=== PATIENT | male | born 1965 | race Caucasian/White ===

== ENCOUNTER 2020-04-11 15:12 | Outpatient (REF) | payer MEDICAID, SELFPAY | END 2020-04-11 15:13 | disposition home or self-care (01) | LOC: HO.LAB 15:12 | PROVIDERS: Visit Provider Internal Medicine | DX: Z20.828 Contact with and (suspected) exposure to other viral communicable diseases (principal) | CPT/HCPCS: 36415; 87635 ==

== ENCOUNTER 2021-03-27 17:01 | Emergency (ER) | payer MEDICAID, SELFPAY ==
--- NOTE | 2021-03-27 | ECG_ITS ---
Test Reason : 4862 Blood Pressure : / mmHG Vent. Rate : 074 BPM Atrial Rate : 074 BPM P-R Int : 144 ms QRS Dur : 082 ms QT Int : 392 ms P-R-T Axes : 019 -17 038 degrees QTc Int : 435 ms Normal sinus rhythm Minimal voltage criteria for LVH, may be normal variant Borderline ECG No previous ECGs available Referred By: Frances Sharif Electronically Signed By:STORMY MATHEW
--- NOTE | ~2021-03-27 | XR_ITS ---
EXAMINATION: XR CHEST CLINICAL INFORMATION: Chest pain COMPARISON: None TECHNIQUE: Frontal view of the chest was obtained. FINDINGS: No significant abnormality is noted involving the heart, lungs, mediastinum, bony thorax or soft tissues. XR/XR chest 1V IMPRESSION: Unremarkable examination.
[2021-03-27 17:20] VITALS: BP 160/80; PULSE 75; RESP 18; TEMP 36.6; O2SAT 98; BMI 30.4
[2021-03-27 20:05] LABS: MANUAL DIFF FLAG NO
[2021-03-27 20:09] LABS: Basophils Absolute Auto 0.1 X10*3/uL (0.0-0.2); Basophils Percent Auto 0.6 % (0-2); Eosinophils Absolute Auto 0.2 X10*3/uL (0.0-0.4); Eosinophils Percent Auto 2.4 % (0-4); Hematocrit 42.2 % (42-52); Hemoglobin 14.7 g/dl (14.0-18.0); Imm Gran Abs Auto 0.02 X10*3/uL (0.00-0.03); Imm Gran Pct Auto 0.2 % (0.0-0.4); Lymphocytes Absolute Auto 2.8 X10*3/uL (1.2-4.9); Lymphocytes Percent Auto 31.9 % (20-40); Mean Corpuscular HGB Conc 34.8 g/dl (31.0-36.0); Mean Corpuscular Hemoglobin 32.1 pg (27.0-33.0); Mean Corpuscular Volume 92.1 fL (80-98); Monocytes Absolute Auto 0.8 X10*3/uL (0.1-1.2); Monocytes Percent Auto 9.3 % (2-11); Neutrophils Absolute Auto 4.9 X10*3/uL (2.0-8.3); Neutrophils Percent Auto 55.6 % (45-73); Platelet Count 184 X10*3/uL (160-400); Red Blood Count 4.58 X10*6/uL (4.60-5.80); Red Cell Distribution Width 12.7 % (11.0-16.0); White Blood Count 8.8 X10*3/uL (4.8-10.8)
[2021-03-27 20:13] VITALS: BP 107/68; PULSE 65; RESP 16; TEMP 36.8; O2SAT 99
[2021-03-27 20:24] LABS: Anion Gap 13 (12-20); Blood Urea Nitrogen 20 mg/dL (9-16); Calcium 9.4 mg/dL (8.4-10.2); Carbon Dioxide 28 mmol/L (22-29); Chloride 101 mmol/L (96-108); Creatinine Clr Calc Pharmacy 61.7; Estimated Glomerular Filt Rate 50; Glucose Random 119 mg/dL (60-115); Sodium 138 mmol/L (135-145)
[2021-03-27 20:31] LABS: Troponin-I High Sensitivity 3.7 ng/L (<3.5-35.0)
[2021-03-27 22:00] VITALS: BP 103/69; PULSE 65; RESP 16; TEMP 36.6; O2SAT 99
--- NOTE | 2021-03-27 22:22 | ED_ITS ---
HPI - Chest Pain General Chief Complaint: Chest Pain Stated Complaint: cp Time Seen by Provider: 03/27/21 22:19 Source: patient Mode of arrival: ambulatory Limitations: no limitations History of Present Illness HPI narrative: Patient is a 56-year-old male with a past medical history of hypertension who presents with 3 days of left-sided chest pain that radiates into his abdomen. He describes the pain as 8/10. He states it is worse when he takes a deep breath. He denies any fevers, nausea, vomiting, cough, congestion, headaches or dizziness. He states he has had no changes in his bladder or bowels. Related Data Allergies Allergy/AdvReac Type Severity Reaction Status Date / Time No Known Allergies Allergy Verified 03/27/21 17:46 Review of Systems Review of Systems: Yes all other systems are reviewed and are negative [facility] Past Medical History Medical History Hypertension Social History Social History Advance Directives: No Advance Directives Information Provided: No Physical Exam 2 Vital Signs: Vital Signs: Last Vital Signs Temp 97.9 F 03/27/21 22:00 Pulse 65 03/27/21 22:00 Resp 16 03/27/21 22:00 BP 103/69 03/27/21 22:00 Pulse Ox 99 03/27/21 22:00 Body Mass Index 30.4 Const: General: cooperative, healthy appearing, comfortable, no acute distress and well developed Orientation/consciousness: patient oriented x3 Limitations: no limitations HENMT: Head: Yes normal to inspection Eyes: General: appearance normal, both eyes and all related structures Neck: Neck: Yes normal visual inspection and Yes full ROM Chest: Chest palpation & inspection: tenderness (Left-sided ribs) Resp: Effort & Inspection: normal respiratory effort and able to speak in complete sentences Auscultation: clear to auscultation bilaterally Cardio: Rate: regular rate Rhythm: regular rhythm Heart sounds: normal S1 and S2 GI: Inspection: Yes normal to inspection Palpation (GI): Soft to palpation and nontender Skin: General skin exam: no rashes or lesions noted Neuro: General: patient oriented x3 Extrem: General: Yes normal to inspection Course Course Course Narrative: 56-year-old male with past medical history of hypertension complaining of 3 days of pleuritic chest pain. Vital signs are stable, physical exam revealed reproducible chest pain. EKG normal sinus rhythm 74 beats per minute, chest x-ray negative. Labs all within normal limits, troponin negative. MDM - Chest Pain Lab Data Result diagrams: 03/27/21 19:56 03/27/21 19:56 Labs: Lab Results 03/27/21 03/27/21 03/27/21 Range/Units 19:56 19:56 19:56 WBC 8.8 (4.8-10.8) X10*3/uL RBC 4.58 L (4.60-5.80) X10*6/uL Hgb 14.7 (14.0-18.0) g/dl Hct 42.2 (42-52) % MCV 92.1 (80-98) fL MCH 32.1 (27.0-33.0) pg MCHC 34.8 (31.0-36.0) g/dl RDW 12.7 (11.0-16.0) % Plt Count 184 (160-400) X10*3/uL MPV 11.0 (9.4-12.4) fL Immature Gran % (Auto) 0.2 (0.0-0.4) % Neut % (Auto) 55.6 (45-73) % Lymph % (Auto) 31.9 (20-40) % Bourbon % (Auto) 9.3 (2-11) % Eos % (Auto) 2.4 (0-4) % Baso % (Auto) 0.6 (0-2) % Lymph # (Auto) 2.8 (1.2-4.9) X10*3/uL Bourbon # (Auto) 0.8 (0.1-1.2) X10*3/uL Eos # (Auto) 0.2 (0.0-0.4) X10*3/uL Baso # (Auto) 0.1 (0.0-0.2) X10*3/uL Abs Immat Gran (auto) 0.02 (0.00-0.03) X10*3/uL Absolute Neuts (auto) 4.9 (2.0-8.3) X10*3/uL Absolute Nucleated RBC 0.000 (0.0-0.012) X10*3/uL Nucleated RBC % (auto) 0.0 (0.0-0.2) /100WBC Sodium 138 (135-145) mmol/L Potassium 4.0 (3.3-5.1) mmol/L Chloride 101 (96-108) mmol/L Carbon Dioxide 28 (22-29) mmol/L Anion Gap 13 (12-20) BUN 20 H (9-16) mg/dL Creatinine 1.46 H (0.5-1.4) mg/dL Estim Creat Clear Calc 61.7 Estimated GFR 50 Random Glucose 119 H (60-115) mg/dL Calcium 9.4 (8.4-10.2) mg/dL Troponin I High Sens 3.7 (<3.5-35.0) ng/L Discharge Plan Discharge Clinical Impression: Costalchondritis Patient Disposition: Home, Self-Care Instructions: Costochondritis (ED) Additional Instructions: If your symptoms get worse, please return to the emergency department or follow- up with your primary care doctor. Otherwise please take Motrin, Aleve or Advil as directed for 3 or 4 days, your pain should improve slowly over the next 1-2 weeks. Interventions: ED Discharge Assessment Last Done: 03/27/21 23:08 Discharge Date/Time: 03/27/21 23:09 Print Language: Kinyarwanda
== END 2021-03-27 23:09 | disposition home or self-care (01) ==
PROVIDERS: Emergency Provider Internal Medicine; PCP Internal Medicine
DX: M94.0 Chondrocostal junction syndrome [Tietze] (principal); R07.9 Chest pain, unspecified
CPT/HCPCS: 36415; 71045; 80048; 84484; 85025; 93005; 96374; 99284

== ENCOUNTER 2021-07-09 09:22 | Outpatient (REF) | payer MEDICAID, SELFPAY ==
[2021-07-09 10:43] LABS: COVID-19 Test Positive (Negative)
== END 2021-07-09 09:23 | disposition home or self-care (01) ==
LOC: HO.LAB 09:22
PROVIDERS: Visit Provider Internal Medicine
DX: Z20.822 Contact with and (suspected) exposure to COVID-19 (principal)
CPT/HCPCS: 36415; 87635; C9803

== ENCOUNTER 2022-02-26 13:59 | Outpatient (REF) | payer MEDICAID, SELFPAY ==
--- NOTE | ~2022-02-26 | XR_ITS ---
EXAMINATION: XR SHOULDER, RIGHT CLINICAL INFORMATION: Right shoulder pain. COMPARISON: None TECHNIQUE: Four views of the right shoulder. FINDINGS: The bony alignments are intact. The cortices are intact. Articular margins, joint space appear unremarkable. The soft tissues are unremarkable. XR/XR shoulder RT min 2V IMPRESSION: Unremarkable radiographic appearance of the right shoulder.
== END 2022-02-26 14:00 | disposition home or self-care (01) ==
LOC: HO.XRAY 13:59
PROVIDERS: Absent Provider Internal Medicine; PCP Internal Medicine; Visit Provider Internal Medicine
DX: M25.511 Pain in right shoulder (principal)
CPT/HCPCS: 73030

== ENCOUNTER 2022-07-21 08:38 | Outpatient (REF) | payer MEDICAID, SELFPAY ==
--- NOTE | 2022-07-21 | EMG_ITS ---
Please see scanned EMG / Nerve Conduction Report. MTDD
== END 2022-07-21 08:39 | disposition home or self-care (01) ==
LOC: HO.NEURO 08:38
PROVIDERS: PCP Internal Medicine; Visit Provider Internal Medicine
DX: M79.604 Pain in right leg (principal)
CPT/HCPCS: 95885; 95909

== ENCOUNTER 2022-09-09 17:00 | Outpatient (RCR) | payer MEDICAID, SELFPAY ==
[2022-07-16 13:57] VITALS: BP 122/77; PULSE 83; O2SAT 97
== END 2022-09-10 09:29 | disposition home or self-care (01) ==
LOC: HO.PT 17:00
PROVIDERS: PCP Internal Medicine; Visit Provider Internal Medicine
DX: M79.604 Pain in right leg (principal)
CPT/HCPCS: 97110; 97140; 97162

== ENCOUNTER 2023-04-15 10:35 | Outpatient (REF) | payer BC, SELFPAY | END 2023-04-15 10:36 | disposition home or self-care (01) | LOC: HO.LAB 10:35 | PROVIDERS: PCP Internal Medicine; Visit Provider Internal Medicine | DX: Z00.00 Encounter for general adult medical examination without abnormal findings (principal); Z12.5 Encounter for screening for malignant neoplasm of prostate; M75.52 Bursitis of left shoulder; N40.0 Benign prostatic hyperplasia without lower urinary tract symptoms; I10 Essential (primary) hypertension; E78.00 Pure hypercholesterolemia, unspecified | CPT/HCPCS: 36415; 80053; 80061; 84153; 85025 ==

== ENCOUNTER 2023-05-31 16:00 | Outpatient (RCR) | payer BC, SELFPAY ==
--- NOTE | 2023-04-30 16:23 | MHC.PT.EP ---
[facility] [place] [facility] [place] [facility] [place] [facility] [address] [phone] F: [phone] F: [phone] F: [phone] F: [phone] Physical Therapy Plan of Care Date of Evaluation: 04/28/23 Date of Surgery: n/a Diagnosis: Bursitis left shoulder Assessment: Pt is a pleasant 58yo M who presents to PT with L shoulder pain. Pt presents to PT with current impairments in pain, decreased L shoulder ROM, decreased strength, soft tissue restrictions, and impaired posture. He is limited functionally by lifting, carrying, overhead ADLs, and laying on his side. He is an excellent candidate for skilled PT in order to address current impairments to facilitate return to PLOF. He is recommended to be seen 2x/week for 4 weeks and will be reassessed at that time Frequency and Duration: The patient will be seen 2x/week for 4 weeks Short Term Goals: Pt will be I with HEP to promote self management of symptoms Pt will increase L shoulder flexion by at least 10 degrees Process Operator Goals: Pt will achieve full ROM and strength all planes of L shoulder to assist with functional tasks such as lifting and reaching Pt will perform overhead ADLs with minimal to no pain or compensation Treatment Plan: Modalities to reduce pain, spasms and effusion. Manual therapy to restore motion and function. Therapeutic exercise to improve strength and flexibility. Neuromuscular re-education for posture and balance. Therapeutic activities to return to functional activities of daily living. Electronically signed by: Meghan Urena, PT, DPT Please sign and return to therapist. Thank you for your referral.
--- NOTE | 2023-10-17 11:39 | MHC.PT.DC ---
[facility] [place] Office [place] Office [place] Office [address] Destini Lassiter [address] [phone] F: [phone] F: [phone] F: [phone] F: [phone] Physical Therapy Discharge Report Diagnosis: Bursitis left shoulder Date of Surgery: n/a Date of Evaluation: 04/28/23 Date of Discharge: 10/17/23 Treatments to Date: 8 Cancellations to Date: 1 No Shows to Date: 1 Discharge Status: Improved Function Independent with HEP Discharge Summary: Pt was seen for PT from 04/28/23-05/31/23. His last attended and scheduled PT session was 05/31/23 From last PT note by JF: Pt independent w/HEP -Significant improvement w/SPADI AROM N all mvts -strength 5/5 to same Electronically signed by: Meghan Urena, PT, DPT Please sign and return to therapist. Thank you for your referral.
== END 2023-10-17 11:38 | disposition home or self-care (01) ==
LOC: HO.PT 16:00
PROVIDERS: PCP Internal Medicine; Visit Provider Internal Medicine
DX: M75.52 Bursitis of left shoulder (principal)
CPT/HCPCS: 97110; 97140; 97161; 97530

== ENCOUNTER 2023-08-01 06:45 | Outpatient (REF) | payer BC, SELFPAY ==
[2023-08-01 07:31] LABS: Alanine Aminotransferase 49 U/L (0-40); Albumin Level 3.9 g/dL (3.5-5.0); Alkaline Phosphatase 53 U/L (39-117); Anion Gap 10 (12-20); Aspartate Amino Transferase 26 U/L (5-37); Bilirubin Total 0.6 mg/dL (0.0-1.0); Blood Urea Nitrogen 14 mg/dL (9-16); Carbon Dioxide 27 mmol/L (22-29); Chloride 108 mmol/L (96-108); Cholesterol 105 mg/dL (<200); Estimated Glomerular Filt Rate > 60; Glucose Random 114 mg/dL (60-115); HDL Cholesterol 27 mg/dL (>40); LDL Cholesterol Calculated 62 mg/dL (<100); Potassium 4.4 mmol/L (3.3-5.1); Sodium 141 mmol/L (135-145); Total Protein 7.6 g/dL (6.5-8.0); Triglycerides 82 mg/dL (<150)
== END 2023-08-01 06:46 | disposition home or self-care (01) ==
LOC: HO.LAB 06:45
PROVIDERS: PCP Internal Medicine; Visit Provider Internal Medicine
DX: E78.00 Pure hypercholesterolemia, unspecified (principal); R74.01 Elevation of levels of liver transaminase levels; I10 Essential (primary) hypertension
CPT/HCPCS: 36415; 80053; 80061

== ENCOUNTER 2024-04-11 05:56 | Outpatient (REF) | payer BC, SELFPAY ==
[2024-04-11 06:51] LABS: MANUAL DIFF FLAG NO
[2024-04-11 07:58] LABS: Basophils Percent Auto 0.6 % (0-2); Eosinophils Absolute Auto 0.6 X10*3/uL (0.0-0.4); Eosinophils Percent Auto 8.2 % (0-4); Hematocrit 41.2 % (42.0-52.0); Hemoglobin 14.2 g/dl (14.0-18.0); Imm Gran Abs Auto 0.02 X10*3/uL (0.00-0.03); Imm Gran Pct Auto 0.3 % (0.0-0.4); Lymphocytes Absolute Auto 2.4 X10*3/uL (1.2-4.9); Lymphocytes Percent Auto 33.5 % (20-40); Mean Corpuscular HGB Conc 34.5 g/dl (31.0-36.0); Mean Corpuscular Volume 92.8 fL (80.0-98.0); Monocytes Absolute Auto 0.8 X10*3/uL (0.1-1.2); Monocytes Percent Auto 10.9 % (2-11); Neutrophils Absolute Auto 3.3 x10*3/uL (2.0-8.3); Neutrophils Percent Auto 46.5 % (45-73); Platelet Count 167 X10*3/uL (160-400); Red Blood Count 4.44 X10*6/uL (4.60-5.80); Red Cell Distribution Width 12.8 % (11.0-16.0)
[2024-04-11 08:25] LABS: Alanine Aminotransferase 45 U/L (0-40); Albumin Level 4.2 g/dL (3.5-5.0); Alkaline Phosphatase 63 U/L (39-117); Anion Gap 12 (12-20); Aspartate Amino Transferase 26 U/L (5-37); Bilirubin Total 0.6 mg/dL (0.0-1.0); Blood Urea Nitrogen 14 mg/dL (9-16); Calcium 9.4 mg/dL (8.4-10.2); Carbon Dioxide 26 mmol/L (22-29); Chloride 107 mmol/L (96-108); Cholesterol 116 mg/dL (<200); Estimated Glomerular Filt Rate 59; Glucose Random 100 mg/dL (60-115); HDL Cholesterol 32 mg/dL (>40); LDL Cholesterol Calculated 62 mg/dL (<100); Potassium 3.5 mmol/L (3.3-5.1); Sodium 141 mmol/L (135-145); Total Protein 7.8 g/dL (6.5-8.0); Triglycerides 112 mg/dL (<150)
[2024-04-11 08:44] LABS: Prostate Specific Antigen Scr 0.37 ng/mL (<0.05-4.0)
== END 2024-04-11 05:57 | disposition home or self-care (01) ==
LOC: HO.LAB 05:56
PROVIDERS: PCP Internal Medicine; Visit Provider Internal Medicine
DX: E78.00 Pure hypercholesterolemia, unspecified (principal); I10 Essential (primary) hypertension; N40.0 Benign prostatic hyperplasia without lower urinary tract symptoms; R74.01 Elevation of levels of liver transaminase levels; Z68.33 Body mass index [BMI] 33.0-33.9, adult; Z12.5 Encounter for screening for malignant neoplasm of prostate
CPT/HCPCS: 36415; 80053; 80061; 84153; 85025

== ENCOUNTER 2024-10-22 06:33 | Outpatient (REF) | payer BC, SELFPAY ==
--- OUTSIDE RECORDS SUMMARY | 2024-10-22 06:36 | XMS_ITS | Clinical Summary ---
Author Organization [employer] Address [address] [facility] [address] [place] [address] Care Team Providers Care Slurry Blender Name Role Phone Merlin Nolasco MD Primary Care Prov ider Allergies No known active allergies Medications lisinopril-hydro CHLOROthiazide 20-25 MG tablet Take 1 tablet by mouth in the morning. 90 tablet 3 10/07/2022 Active Blood Pressure kit 1 kit in the morning. 1 kit 10/07/2022 Active naproxen (Naprosyn) 500 MG tablet TAKE 1 TABLET BY MOUTH TWICE A DAY WITH FOOD 60 tablet 3 12/09/2022 Active Active Problems Problem Noted Date Diagnosed Date Screening for colon cancer 10/07/2022 Assessment & Plan (10/07/2022 11:16 AM EDT): Done in 2017 it was reported as normal, no polyps removed but report says to repeat it in 5 years, will refer to GI Primary hypertension 06/25/2022 Assessment & Plan (10/07/2022 11:17 AM EDT): Controlled, will order new bp monitor, reinforced low sodium diet and exercise as tolerated, will follow up in 3 months Assessment & Plan (06/25/2022 12:48 PM EST): Controlled on lisinopril/hctz, low sodium diet and exercise reinforced, no changes will be made Prostate cancer screening 06/25/2022 Right leg pain 06/25/2022 Assessment & Plan (06/25/2022 12:50 PM EST): Patient complains for the past 3-4 months of a shotting pain on the back of his thigh, not related to exertion, no back pain, no leg weakness. Will refer to PT, has tried conservative treatment without improvement, and will order a EMG. Screening for malignant neoplasm of colon 2021 Assessment & Plan (06/25/2022 12:51 PM EST): Had colonoscopy on 2017, scheduled for 5 years, will place referal Social History Tobacco Use Types Packs/Day Years Used Date Smoking Tobacco: Never Assessed Depression Answer Date Recorded Patient Health Questionnaire-9 Score 4 10/07/2022 Housing Stability Answer Date Recorded What is your housing situation today? I have edwina jerome 05/16/[address] you li ve. Do you have problems with any of the following? None of the above 05/16/2023 Food Insecurity Answer Date Recorded Within the past 12 months, y ou worried that your food would run out before you got money to buy more: Never True 05/16/2023 Within the past 12 months,th e food you bought just didn't last and you didn't have enough money to get more: Never True 12/2022 Transportation Answer Date Recorded In the past 12 months, has l ack of transportation kept you from medical appts, meetings, work or from getting things needed for daily living? No 05/16/2023 Utilities Answer Date Recorded In the past 12 months, has t he electric, gas, oil or water company threatened to shut off services in your home? No 05/16/2023 Depression Answer Date Recorded Patient Health Questionnaire-2 Score 4 10/07/2022 Sex and Gender Information Value Date Recorded Sex Assigned at Male 05/10/2022 10:18 AM EDT Legal Sex Male 10:18 AM EDT Gender Identity Male 05/10/2022 10:18 AM EDT Sexual Orientation Straight 05/10/2022 10 :18 AM EDT Last Filed Vital Signs Vital Sign Reading Time Taken Comments Blood Pressure 125/87 11/12/2022 11:28 AM EDT Pulse 66 11/12/2022 11:28 AM EDT Temperature 36.4 ??C (97.6 ??F) 11/12/2022 11:28 AM E DT Respiratory Rate 16 11/12/2022 11:28 AM EDT Oxygen Saturation - - Inhaled Oxygen Concentration - - Weight 93 kg (205 lb) 11/12/2022 11:28 AM EDT Height 170.2 cm (5' 7 ) 11/12/2022 11:28 AM EDT Body Mass Index 32.11 11/12/2022 11:28 AM EDT Plan of Treatment Health Maintenance Due Date Last Done Comments CT Colonography 1965 Colonoscopy 1965 Colorectal Cancer Screening 1965 FIT DNA/Cologuard 1965 FIT 1965 FOBT 1965 HIV Screening 1965 Sigmoidoscopy 1965 Alcohol/Substance Use Screening 1977 Tobacco Screening 1977 Hepatitis C Screening 1983 Hepatitis B Vaccines (1 of 3 - 19+ 3-dose series) 01/21/1984 Pneumococcal Vaccine: 50+ Years (1 of 1 - PCV) 2015 DTaP/Tdap/Td Vaccines (2 - T d or Tdap) 11/23/2022 11/23/2012 Depression Screening 10/08/2023 10/07/2022, 10/07/2022 SDOH Screening 10/08/2023 10/07/2022 COVID-19 Vaccine (4 - 2023-2 5 season) 2024 08/19/2021, 11/29/2020, 11/01/2020 Influenza Vaccine (#1) 2024 2, 08/28/2019 Lipid Panel 06/25/2027 06/25/2022 RSV Patients and Patients Aged 60 years or older (1 - 1-dose 75+ series) 01/21/2040 Zoster Vaccines Completed 03/03/2020, 08/28/2019 HIB Vaccines Aged Out No longer eligi ble based on patient's age to complete this topic HPV Vaccines Aged Out No longer eligi ble based on patient's age to complete this topic Hepatitis A Vaccines Aged Out No long er eligible based on patient's age to complete this topic IPV Vaccines Aged Out No longer eligi ble based on patient's age to complete this topic Meningococcal Vaccine Aged Out No sakina sudheer eligible based on patient's age to complete this topic RSV under 20 months Aged Out No longe r eligible based on patient's age to complete this topic Rotavirus Vaccines Aged Out No longer eligible based on patient's age to complete this topic Procedures Procedure Name Priority Date/Time Associated Diagnosis Comments LIPID PANEL, STANDARD Routine 06/25/2022 10:51 AM EST Primary hypertension from Last 3 Months or Most Recently Relevant to Health Maintenance Results * (ABNORMAL) Lipid Panel, Standard (06/25/2022 10:51 AM EST) Cholesterol, Total 186 <200 mg/dL [facility] HDL Cholesterol 35(L) > OR = 40 mg/dL [facility] Triglycerides 183(H) <150 mg/dL [facility] LDL Cholesterol 121(H) mg/dL (calc) [facility] Comment: Reference range: <100 Desirable range <100 mg/dL for primary prevention; ?? <70 mg/dL for patients with CHD or diabetic patients with > or = 2 CHD risk factors. LDL-C is now calculated using the Baljit-Wu calculation, which is a validated novel method providing better accuracy than the Friedewald equation in the estimation of LDL-C. Baljit SS et al. RENA. 2013;310(19): 5902-6498 (http://education.Canara/faq/ATO039) Chol/HDLC Ratio 5.3(H) <5.0 (calc) [facility] Non-HDL Cholesterol 151(H) <130 mg/dL (calc) [facility] Comment: For patients with diabetes plus 1 major ASCVD risk factor, treating to a non-HDL-C goal of <100 mg/dL (LDL-C of <70 mg/dL) is considered a therapeutic option. Blood Venous blood specimen / Unknown 06/25/2022 10:51 AM EST 06/25/2022 10:52 AM EST Narrative [facility] - 06/26/2022 9:20 AM EST FASTING:NO FASTING: NO Merlin Paulson MD LAB BLOOD ORDERABL ES Final Result [facility] [address] [facility], 3[address], [place] [address] [facility] [address] [facility], ([address]) [place] [address] from Last 3 Months or Most Recently Relevant to Health Maintenance Insurance [facility] C3 HSN FULL Care Teams Slurry Blender Relationship Specialty Start Date End Date Merlin Nolasco MD [address] [place] [id number] PCP - General Internal Medicine 02/23/22
[2024-10-22 07:56] LABS: Alanine Aminotransferase 55 U/L (0-40); Alkaline Phosphatase 56 U/L (39-117); Anion Gap 9 (12-20); Aspartate Amino Transferase 33 U/L (5-37); Bilirubin Total 0.5 mg/dL (0.0-1.0); Blood Urea Nitrogen 17 mg/dL (9-16); Calcium 8.9 mg/dL (8.4-10.2); Carbon Dioxide 26 mmol/L (22-29); Chloride 111 mmol/L (96-108); Estimated Glomerular Filt Rate > 60; Glucose Random 89 mg/dL (60-115); Sodium 142 mmol/L (135-145); Total Protein 7.3 g/dL (6.5-8.0)
[2024-10-22 08:43] LABS: HBsAGNum1 0.33 S/CO (0.00-0.99); Hepatitis B Core Antibody Nonreactive (Nonreactive); Hepatitis B Surface Antigen Negative (Negative); ~Hepatitis B Surface Antibody NONREACTIVE (Nonreactive)
[2024-10-23 19:48] LABS: HCV Log PCR <1.18 NOT DETECTED Log IU/mL (NOT DETECTED); HepC Viral Load <15 NOT DETECTED IU/mL (NOT DETECTED)
== END 2024-10-22 06:34 | disposition home or self-care (01) ==
LOC: HO.LAB 06:33
PROVIDERS: PCP Internal Medicine; Visit Provider Internal Medicine
DX: Z00.00 Encounter for general adult medical examination without abnormal findings (principal); E78.00 Pure hypercholesterolemia, unspecified; I12.9 Hypertensive chronic kidney disease with stage 1 through stage 4 chronic kidney disease, or unspecified chronic kidney disease; R74.01 Elevation of levels of liver transaminase levels
CPT/HCPCS: 36415; 80053; 86704; 86706; 87340; 87522

== ENCOUNTER 2025-04-16 08:30 | Outpatient (REF) | payer BC, SELFPAY ==
--- OUTSIDE RECORDS SUMMARY | 2025-04-16 09:07 | XMS_ITS | Clinical Summary ---
Author Organization [employer] Address [address] [facility] 7[address] [place] [address] Care Team Providers Care Tobacco Sieve Operator Name Role Phone Merlin Nolasco MD Primary [...] 66 11/12/2022 11:28 AM EDT Temperature 36.4 C (97.6 F) 11/12/2022 11:28 AM EDT Respiratory Rate 16 11/12/2022 11:28 AM EDT [...] FOBT 1965 HIV Screening 1965 Sigmoidoscopy 1965 Disability Screening 1965 Alcohol/Substance Use Screening 1977 Tobacco Screening 1977 Hepatitis C Screening 1983 Pneumococcal Vaccine: 50+ Years (1 of 1 - PCV) 2015 DTaP/Tdap/Td Vaccines (2 - T d or Tdap) 11/23/2022 11/23/2012 Depression Screening 10/08/2023 10/07/2022, 10/07/2022 SDOH Screening 10/08/2023 10/07/2022 COVID-19 Vaccine (4 - 2024-2 6 season) 2025 08/19/2021, 11/29/2020, 11/01/2020 Influenza Vaccine (#1) 2025 , 08/28/2019 Lipid Panel 06/25/2027 06/25/2022 RSV Patients [...] patient's age to complete this topic Hepatitis B Vaccines Aged Out No long er eligible based on patient's age to complete this topic IPV Vaccines Aged Out No longer eligi ble based on patient's age to complete this topic Meningococcal B Vaccine Aged Out No l onger eligible based on patient's age to complete [...] AM EST) Cholesterol, Total 186 <200 mg/dL [facility] HDL Cholesterol 35(L) > OR = 40 mg/dL [facility] Triglycerides 183(H) <150 mg/dL [facility] LDL Cholesterol 121(H) mg/dL (calc) [facility] Comment: Reference range: <100 Desirable range <100 mg/dL for primary prevention; <70 mg/dL for patients with CHD or diabetic patients with > or = 2 CHD risk factors. LDL-C is now calculated using the Baljit-Wu calculation, which is a validated novel method providing better accuracy than the Friedewald equation in the estimation of LDL-C. Baljit DUVAL et al. RENA. 2013;310(19): 5446-9914 (http://education.Pwinty.Gigawatt/faq/NQY810) Chol/HDLC Ratio 5.3(H) <5.0 (calc) [facility] Non-HDL Cholesterol 151(H) <130 mg/dL (calc) [facility] Comment: For patients with diabetes plus 1 major ASCVD risk factor, treating to a non-HDL-C goal of <100 mg/dL (LDL-C of <70 mg/dL) is considered a therapeutic option. Blood Venous blood specimen / Unknown 06/25/2022 10:51 AM EST 06/25/2022 10:52 AM EST Narrative [facility] - 06/26/2022 9:20 AM EST FASTING:NO FASTING: NO us Merlin Paulson MD LAB BLOOD ORDERABL ES Final Result [facility] [address] [facility], 3[address], [place] [address] [facility] [address] , ([address]) [place] [address] from Last 3 Months or Most Recently Relevant to Health Maintenance Insurance [facility] C3 HSN FULL Care Teams Tobacco Sieve Operator Relationship Specialty Start Date End Date Merlin Nolasco, MD [address] [place] [id number] PCP - General Internal Medicine 02/23/22
[2025-04-16 10:02] LABS: Alanine Aminotransferase 43 U/L (0-40); Albumin Level 4.1 g/dL (3.5-5.0); Alkaline Phosphatase 66 U/L (39-117); Anion Gap 10 (12-20); Aspartate Amino Transferase 27 U/L (5-37); Blood Urea Nitrogen 21 mg/dL (9-16); Calcium 8.5 mg/dL (8.4-10.2); Carbon Dioxide 25 mmol/L (22-29); Chloride 111 mmol/L (96-108); Cholesterol 117 mg/dL (<200); Estimated Glomerular Filt Rate 58; HDL Cholesterol 30 mg/dL (>40); Potassium 3.8 mmol/L (3.3-5.1); Sodium 142 mmol/L (135-145); Total Protein 7.2 g/dL (6.5-8.0); Triglycerides 101 mg/dL (<150)
== END 2025-04-16 08:31 | disposition home or self-care (01) ==
LOC: HO.LAB 08:30
PROVIDERS: PCP Internal Medicine; Visit Provider Internal Medicine
DX: I10 Essential (primary) hypertension (principal); N40.0 Benign prostatic hyperplasia without lower urinary tract symptoms; E78.00 Pure hypercholesterolemia, unspecified; R74.01 Elevation of levels of liver transaminase levels; Z68.32 Body mass index [BMI] 32.0-32.9, adult; Z12.5 Encounter for screening for malignant neoplasm of prostate
CPT/HCPCS: 36415; 80053; 80061; 84153